=== PATIENT | female | born 1945 | race Hispanic/Latino ===

== ENCOUNTER → 2018-11-19 | Outpatient (CLI) | payer MEDICARE ==
--- NOTE | 2018-11-19 10:00 | Diagnostic Imaging Report ---
EXAM: Complete Abdominal Ultrasound INDICATION: ^[id number] ^ABDOMINAL PAIN COMPARISON: None. TECHNIQUE: Transverse and longitudinal images of the upper abdomen were obtained. FINDINGS: Liver: Size: 14.5 cm in the right midclavicular line, normal Appearance: Increased echogenicity, smooth contour Mass: No focal masses Spleen: Size: 8.3 cm in length, normal Echogenicity: Normal Mass: No focal masses Gallbladder: Stones/Sludge: Sludge present. Wall: 0.2 cm Appearance: No pericholecystic fluid or hydrops. Sonographic Ross's Sign: Negative Bile Ducts: Intrahepatic Ducts: No dilatation Extrahepatic Ducts: Common bile duct measures 0.3 cm, no dilatation Pancreas: Limited visualized pancreas is unremarkable. Right Kidney: Size: 10.6 cm Echogenicity: Increased Parenchymal thickness: Normal Collecting System: No hydronephrosis Stone: None Cyst/Mass: 1.6 x 1.2 1.4 cm lateral lower pole cyst. Left Kidney: Size: 10.3 cm Echogenicity: Increased Parenchymal thickness: Normal Collecting System: No hydronephrosis Stone: None Cyst/Mass: None Vessels: Aorta: Not well visualized. Inferior Vena Cava: Visualized portions are normal Main Portal Vein: 0.7 cm, normal size with hepatopetal flow. Free Fluid: No ascites or pleural effusion IMPRESSION: Hepatic steatosis. Increased renal cortical echogenicity, suggestive of medical renal disease. Gallbladder sludge. No cholelithiasis or evidence of cholecystitis. Signed by: Dr. Refugio Levi MD on 11/19/2018 9:57 AM
--- NOTE | 2018-11-19 10:05 | Diagnostic Imaging Report ---
EXAM: Transabdominal and Transvaginal Pelvic Ultrasound INDICATION: ^[id number] ^PELVIC PAIN COMPARISON: None TECHNIQUE: Grayscale transverse and sagittal transabdominal images were obtained of the pelvis. CLINICAL HISTORY: 73 year old A0; postmenopausal. FINDINGS: Limited exam due to body habitus and only transabdominal examination. Uterus Orientation: Normal Size: 6.8 x 3.4 x 4.7 cm, Normal Mass: Limited evaluation due to shadowing. Cervix: Limited evaluation. Endometrium: Not clearly visualized. Ovaries are obscured by bowel gas. Adnexa: Normal Cul-de-sac: No free fluid IMPRESSION: Very limited transabdominal pelvic ultrasound exam. Ovaries are not visualized, limiting evaluation. Signed by: Dr. Refugio Levi MD on 11/19/2018 10:02 AM
== END ==
LOC: US 08:47
PROVIDERS: ATTEND Family Medicine
DX: R10.9 Unspecified abdominal pain (principal); R10.2 Pelvic and perineal pain; R13.10 Dysphagia, unspecified
CPT/HCPCS: 76700; 76856

== ENCOUNTER → 2020-06-22 | Outpatient (CLI) | payer MEDICARE ==
--- NOTE | 2020-06-22 12:41 | Diagnostic Imaging Report ---
EXAMINATION: CHEST 2 VIEWS INDICATION: Shortness of breath COMPARISON: None FINDINGS: LINES/TUBES:None LUNGS:The lungs are moderately inflated. Multifocal bilateral lower lung predominant patchy airspace opacities PLEURA:No pleural effusion or pneumothorax. MEDIASTINUM:The cardiomediastinal silhouette appears normal in size and shape. BONES/SOFT TISSUES:No acute osseous injury. ABDOMEN:No free air under the diaphragm. IMPRESSION: Multifocal bilateral lower lung dominant patchy airspace opacities, concerning for multifocal pneumonia including of viral etiologies. The above findings were discussed with WINSTON Steven of Dr. Chavez's office on 06/22/2020 12:27 PM, who responded indicating that the communication was understood. Signed by: Carson Morales MD on 06/22/2020 12:37 PM
== END ==
LOC: RAD 11:50
PROVIDERS: ATTEND Family Medicine
DX: R06.9 Unspecified abnormalities of breathing (principal)
CPT/HCPCS: 71046

== ENCOUNTER → 2020-07-13 | Outpatient (CLI) | payer MEDICARE ==
--- NOTE | 2020-07-13 11:54 | Diagnostic Imaging Report ---
EXAM: CHEST 2 VIEWS DATE: 07/13/2020 11:26 AM INDICATION: Pneumonia COMPARISON: 06/22/2020 FINDINGS: The trachea is midline. Again identified are lower lung zone predominant bilateral airspace opacities which are decreased from the prior examination from 06/22/2020. There is no evidence for new large focal consolidation, pneumothorax, or significant volume pleural effusion. The cardiomediastinal silhouette is stable in appearance. No acute osseous abnormality is identified. IMPRESSION: Interval decrease in patchy bilateral airspace opacity suggesting resolving infectious/inflammatory process. Follow-up to complete resolution is recommended. Signed by: Dr. Gabriel Nolan MD on 07/13/2020 11:50 AM
== END ==
LOC: RAD 11:19
PROVIDERS: ATTEND Family Medicine
DX: J18.0 Bronchopneumonia, unspecified organism (principal)
CPT/HCPCS: 71046

== ENCOUNTER → 2020-12-28 | Outpatient (CLI) | payer MEDICARE | LOC: RAD 11:11 | PROVIDERS: ATTEND Family Medicine | DX: M54.2 Cervicalgia (principal) | CPT/HCPCS: 72050 ==

== ENCOUNTER → 2021-11-05 | Outpatient (CLI) | payer MEDICARE | LOC: RAD 10:19 | PROVIDERS: ATTEND Nurse Practitioner Adult Health | DX: M79.605 Pain in left leg (principal); M25.552 Pain in left hip; W19.XXXA Unspecified fall, initial encounter ==

== ENCOUNTER → 2023-12-17 | Outpatient (REF) | payer MEDICARE ==
[~2023-12-17] MED LIST: AMLODIPINE BESYL5 MG PO; ATORVASTATIN CA20 MG PO; FENOFIBRATE145 MG PO; GLIMEPIRIDE4 MG; JANUVIA100 MG PO; LOSARTAN POTAS100 MG PO; METFORMIN HCL500 MG PO; METOPROLOL SUCC50 MG PO; POTASSIUM CHLO10 ME1 PO; SYNJARDY XR 121 EACH
== END ==
LOC: RAD 10:56
PROVIDERS: ATTEND Nurse Practitioner Primary Care
DX: R60.9 Edema, unspecified (principal)
CPT/HCPCS: 93970